=== PATIENT | female | born 1970 | race Caucasian/White ===

== ENCOUNTER 2017-12-08 13:06 | Emergency (ER) | payer OTHER ==
[~2017-12-08] VITALS: Ht 172.7 cm; Wt 68.0 kg
[~2017-12-08 13:06] MED LIST: AMLO10TA2 PO; CNC/36 PO; DESOTAB2 PO; GABA-113 PO; VENL75CA PO
[2017-12-08 13:17] VITALS: TEMP 36.7; Ht 172.7 cm; Wt 68.0 kg
[2017-12-08] MEDS ORDERED: VENL150C PO (13:37)
[2017-12-08] MEDS ORDERED: RBX500 PO (13:37)
[2017-12-08] MEDS ORDERED: ACET-1693 PO (13:39)
[2017-12-08] MEDS ORDERED: NAPR1TAB9 PO (13:39)
[2017-12-08] MEDS ORDERED: MoRPHine SULFATE 10 MG/ML CARP/VIAL IM STA (14:00)
[2017-12-08] MEDS ORDERED: KETOROLAC TROMETHAMINE 60 MG/2 ML VIAL IM ONE (14:00)
[2017-12-08] MEDS ORDERED: CYCLOBENZAPRINE HCL 10 MG TAB PO STA (14:00)
[2017-12-08] MEDS ORDERED: ONDANSETRON 4MG OD TAB PO STA (14:00)
[2017-12-08] MEDS ORDERED: DEXAMETHASONE SOD INJ 4 MG/ML VIAL IM STA (14:00)
--- NOTE | 2017-12-08 14:12 | EMERGENCY ROOM VISIT NOTE ---
History First contact with patient: 13:40 Chief Complaint: BACK PAIN Stated Complaint: LOWER BACK PAIN History of Present Illness The patient is a 47 year old female who presents to the Emergency Room with complaints of severe lower back pain radiating into her right anterior thigh for the last 3 days. The patient has a history of a laminectomy and spinal fusion in 2003. She suffers from chronic pain. She has seen pain management in the past with minimal relief. The patient has tried Neurontin and Robaxin at home with minimal relief. She denies any weakness in her lower extremities. No urinary or bowel incontinence. She denies any fevers. Review of Systems 6 system review negative. Please see pertinent positives in the history of present illness section. Past Medical/Surgical History Medical Problems: (1) History of chronic pain (2) History of constipation (3) History of lumbar fusion (4) Hypertension Surgical Problems: (1) History of laminectomy Family History Diabetes mellitus FHx: multiple sclerosis Hypertension Kidney disease Kidney stones Social History Smoking Status: Never Smoker Alcohol Use: none Drug Use: none Marital Status: in relationship Housing Status: lives with significant other Occupation Status: employed Current/Historical Medications Scheduled Acetaminophen Tab (Tylenol), 650 MG PO UD Amlodipine Besylate (Norvasc), 10 MG PO HS Cyclobenzaprine Hcl (Flexeril), 10 MG PO TID Desogestrel & Ethinyl Estradio (Reclipsen), 1 TAB PO QAM Gabapentin (Neurontin), 300 MG PO TID Methylphenidate Hcl (Concerta), 36 MG PO QAM Methylprednisolone (Medrol Dosepak), 0 PO DAILY Naproxen (Aleve), 220 MG PO UD Venlafaxine Hcl (Effexor Xr), 300 MG PO QAM Scheduled PRN Hydrocodone/Acetaminophen 5MG/325MG ([place] 5MG/325MG), 1-2 TABLET PO Q4H PRN for Pain Methocarbamol (Methocarbamol), 1 TAB PO Q6H PRN for Muscle Spasms Physical Exam Vital Signs Date Time Temp Pulse Resp B/P (MAP) Pulse Ox O2 Delivery O2 Flow Rate FiO2 12/08/17 15:25 90 18 156/95 97 12/08/17 13:17 36.7 91 16 125/85 97 Room Air Physical Exam GENERAL: 47-year-old female, in moderate discomfort,, in no acute distress, nondiaphoretic, well-developed well-nourished. SKIN: The skin was without rashes, erythema, edema, or bruising. HEAD: Normocephalic atraumatic. NECK: Full range of motion of the neck. Cervical spine is nontender. No JVD. HEART: Regular rate and rhythm without murmurs gallops or rubs. LUNGS: Clear to auscultation bilaterally without wheezes, rales or rhonchi. No accessory muscle use. MUSCULOSKELETAL: Mild tenderness palpation over the lumbar spinous processes. Tenderness to palpation over the right SI joint. Muscle tenseness noted in the right paraspinous muscle. Sensation in the lower extremities is equal bilaterally. Quadriceps and hamstring strength 5/5. Strength 5/5 throughout. DP pulse +2 bilaterally. NEURO: Patient was alert and oriented to person place and time. Normal sensation to touch. No focal neurological deficits. Medical Decision & Procedures Medications Administered Medications (Trade) Dose Ordered Sig/Sagar Route Start Time Stop Time Status Last Admin Dose Admin Morphine Sulfate (MoRPHine SULFATE INJ) 8 mg NOW STAT IM 12/08/17 14:00 12/08/17 14:01 DC 12/08/17 14:25 8 MG Dexamethasone Sodium Phosphate (Decadron Inj) 10 mg NOW STAT IM 12/08/17 14:00 12/08/17 14:01 DC 12/08/17 14:26 10 MG Cyclobenzaprine HCl (Flexeril Tab) 10 mg NOW STAT PO 12/08/17 14:00 12/08/17 14:01 DC 12/08/17 14:24 10 MG Ketorolac Tromethamine (Toradol Inj) 60 mg ONE ONCE IM 12/08/17 14:00 12/08/17 14:01 DC 12/08/17 14:26 60 MG Ondansetron HCl (Zofran Odt) 4 mg NOW STAT PO 12/08/17 14:00 12/08/17 14:01 DC 12/08/17 14:24 4 MG ED Course The patient was seen and examined She was medicated with morphine 8 mg, Toradol 60 mg, Decadron 10 mg IM. She was also given Flexeril and Zofran p.o. Upon reevaluation, she was feeling much better. She was comfortable being discharged home. 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 There is no significant trauma. The patient suffers from chronic pain. She likely has an acute exacerbation of her chronic lumbar pain. She is neurovascularly intact. I do not find imaging necessary. The patient had excellent symptomatic relief in the emergency department. She will be given a short course of narcotics, steroids and muscle relaxants. She will follow-up with her primary care physician and/or orthopedics early next week, and agrees to return with worsening symptoms This chart was completed in part utilizing [employer] Speech Voice Recognition software. Attempts were made to minimize the grammatical errors, random word insertions, pronoun errors and incomplete sentences. Any formal questions or concerns about the content, text or information contained within the body of this dictation should be directly addressed to the provider for clarification. Medication Reconcilliation Current Medication List: was personally reviewed by ak Blood Pressure Screening Patient's blood pressure: Normal blood pressure Impression Primary Impression: Lumbar back pain Departure Information Dispostion Home / Self-Care Condition GOOD Prescriptions Cyclobenzaprine Hcl (FLEXERIL) 10 Mg Tab 10 MG PO TID, #20 TAB Prov: Merary Mukherjee PA-C 12/08/17 Methylprednisolone (MEDROL DOSEPAK) 4 Mg Canelo 0 PO DAILY, #1 PKT Prov: Merary Mukherjee PA-C 12/08/17 Hydrocodone/Acetaminophen 5MG/325MG ([place] 5MG/325MG) Tab 1-2 TABLET PO Q4H Y for Pain, #20 TAB For Initial Treatment Prov: Merary Mukherjee PA-C 12/08/17 Referrals No Doctor, Assigned (PCP) Tyrel Stringer D.O. Patient Instructions [facility] Additional Instructions You have been treated in the emergency department for back pain. This is likely due to a strain of your lower back Ibuprofen 600 mg every 6 hours [place] 1-2 tabs every 4 hours for severe pain. Do not drink alcohol or drive while taking this medication. This may be taken with ibuprofen, but avoid Tylenol. This may cause constipation. Please take a stool softener while on this medication. Flexeril every 8 hours as needed for muscle spasm/pain. Please also do not drink alcohol or drive while taking this medication. Please take the entire course of steroids Rest. No strenuous activity until you are feeling better. Please apply ice for 20 minute intervals over the next 24 hours Please follow-up with your primary physician and or orthopedics next week Do not hesitate to return to the emergency department with any new, worsening or concerning symptoms; especially, weakness, difficulty with urination or bowel movements, severe pain or fever It was a pleasure participating in your care this afternoon Work Instructions Return To Work: 2 days
[2017-12-08] MEDS ORDERED: METH4PAK PO (15:06)
[2017-12-08] MEDS ORDERED: CYCL10TA6 PO (15:06)
[2017-12-08] MEDS ORDERED: HYDR-5688 PO (15:06)
[2017-12-08 15:25] VITALS: BP 156/95; PULSE 90; O2SAT 97
== END 2017-12-08 15:25 | disposition home or self-care (01) ==
LOC: C.EDB 13:08 → C.EDD 15:25
DX: M54.5 Low back pain (principal); M54.17 Radiculopathy, lumbosacral region; Z98.1 Arthrodesis status; Z79.899 Other long term (current) drug therapy; I10 Essential (primary) hypertension